=== PATIENT | male | born 1995 | race Caucasian/White ===

== ENCOUNTER → 2017-10-14 | Outpatient (CLI) | payer BC ==
--- NOTE | 2017-10-14 13:17 | US ---
EXAMINATION TYPE: US abdomen complete DATE OF EXAM: 10/14/2017 COMPARISON: NONE CLINICAL HISTORY: R74.8 Abnormal Levels of other serum enzymes. EXAM MEASUREMENTS: Liver Length: 13.4 cm Gallbladder Wall: 0.3 cm CBD: 0.4 cm Spleen: 13.2 cm Right Kidney: 12.1 x 4.5 x 6.3 cm Left Kidney: 12.3 x 5.8 x 5.7 cm Pancreas: not visualized due to midline bowel gas Liver: difficult to penetrate, fatty sparing noted around shreyas hepatis. Gallbladder: No stones seen Evidence for sonographic Block's sign: No CBD: wnl Spleen: wnl Right Kidney: No hydronephrosis or masses seen Left Kidney: No hydronephrosis or masses seen Upper IVC: wnl Abd Aorta: wnl IMPRESSION: 1. Examination is limitation due to bowel gas. 2. Mild Fatty infiltration of liver.
== END | disposition home or self-care (01) ==
LOC: RADUSWWP 07:50
PROVIDERS: ATTEND Family Medicine
DX: K76.0 Fatty (change of) liver, not elsewhere classified (principal)
CPT/HCPCS: 76700

== ENCOUNTER → 2018-04-22 | Outpatient (CLI) | payer BC ==
[2018-04-22 13:38] LABS: Albumin 4.7 g/dL (3.5-5.0); Bilirubin, Delta 0.2 mg/dL (0.0-0.2); Bilirubin,Unconjugated 0.5 mg/dL (0.0-1.1); Total Bilirubin 0.7 mg/dL (0.2-1.3); Total Protein 7.6 g/dL (6.3-8.2)
== END | disposition home or self-care (01) ==
LOC: LABWHC1 12:35
DX: R74.8 Abnormal levels of other serum enzymes (principal)
CPT/HCPCS: 36415; 80061; 80076

== ENCOUNTER 2018-06-18 00:08 | Emergency (ER) | payer BC ==
[2018-06-18] MEDS ORDERED: SODIUM CHLORIDE 0.9% 500 ML 500 ML IV STA (00:20)
[2018-06-18] MEDS ORDERED: ACETAMINOPHEN TAB 500 MG TAB PO STA (00:22)
[2018-06-18] MEDS ORDERED: IBUPROFEN 600 MG TAB PO STA (00:22)
--- NOTE | 2018-06-18 00:33 | ED ---
SOB HPI - General Chief Complaint: Shortness of Breath Stated Complaint: SOB,FEVER Time Seen by Provider: 06/18/18 00:14 Source: patient Mode of arrival: ambulatory Limitations: no limitations - History of Present Illness Initial Comments: 23-year-old male patient presents to the emergency department today with chief complaint of shortness of breath. Patient states that he started becoming short of breath this morning and has progressively worsened throughout the day. Patient denies any cough or congestion. States that he does have some discomfort to the center of his chest when he takes a deep breath. Patient states he was seen here and evaluated yesterday for vomiting and diarrhea was diagnosed with dehydration. Patient states that he did develop a fever this evening with T-max at 102.6F. Patient rates that he has been having some bilateral calf pain but denies any swelling or areas of redness. States he did take a for strep to [place] yesterday but denies any further travel. He has no history of blood clots or clotting disorders. Denies any nasal congestion, sore throat, rash, abdominal pain, or back pain. Patient denies any recent abdominal pain, nausea, vomiting, diarrhea, constipation, back pain, numbness, tingling, dizziness, weakness, hematuria, dysuria, urinary urgency, urinary frequency, headache, visual changes, or any other complaints. - Related Data Previous Rx's Medication Instructions Recorded Ondansetron Odt [Zofran ODT] 4 mg PO Q8HR PRN #30 tab 06/16/18 Allergies Allergy/AdvReac Type Severity Reaction Status Date / Time cefuroxime axetil Allergy Unknown Verified 06/18/18 00:13 [From Ceftin] Review of Systems ROS Statement: Those systems with pertinent positive or pertinent negative responses have been documented in the HPI. ROS Other: All systems not noted in ROS Statement are negative. Past Medical History Past Medical History: Asthma Additional Past Medical History / Comment(s): "fatty liver disease" History of Any Multi-Drug Resistant Organisms: None Reported Past Surgical History: No Surgical Hx Reported Past Psychological History: No Psychological Hx Reported Smoking Status: Never smoker Past Alcohol Use History: Occasional Past Drug Use History: None Reported General Exam Limitations: no limitations General appearance: alert, in no apparent distress, other (This is a well- developed, well-nourished adult male patient in no acute distress. Vital signs upon presentation are temperature 102.9F, pulse 146, respirations 18, blood pressure 145/74, pulse ox 98% on room air.) Eye exam: Present: normal appearance, PERRL, EOMI. Absent: scleral icterus, conjunctival injection, periorbital swelling ENT exam: Present: normal exam, normal oropharynx, mucous membranes moist Respiratory exam: Present: normal lung sounds bilaterally. Absent: respiratory distress, wheezes, rales, rhonchi, stridor Cardiovascular Exam: Present: normal rhythm, tachycardia, normal heart sounds. Absent: systolic murmur, diastolic murmur, rubs, gallop, clicks GI/Abdominal exam: Present: soft, normal bowel sounds. Absent: distended, tenderness, guarding, rebound, rigid Extremities exam: Present: normal inspection, full ROM, normal capillary refill. Absent: tenderness, pedal edema, joint swelling, calf tenderness Neurological exam: Present: alert, oriented X3, CN II-XII intact Psychiatric exam: Present: normal affect, normal mood Skin exam: Present: warm, dry, intact, normal color. Absent: rash Course Vital Signs 06/18/18 06/18/18 06/18/18 00:09 00:39 00:45 Temperature 102.9 F H Pulse Rate 146 H 138 H 142 H Respiratory 18 40 H 25 H Rate Blood Pressure 145/74 128/76 O2 Sat by Pulse 98 97 97 Oximetry 06/18/18 06/18/18 06/18/18 01:00 01:03 01:15 Temperature Pulse Rate 140 H 137 H 128 H Respiratory 32 H 22 41 H Rate Blood Pressure 128/76 116/66 116/66 O2 Sat by Pulse 97 98 96 Oximetry 06/18/18 06/18/18 06/18/18 01:30 01:43 02:05 Temperature 100.1 F H 100.6 F H Pulse Rate 109 H Respiratory Rate Blood Pressure O2 Sat by Pulse Oximetry 06/18/18 06/18/18 06/18/18 02:15 02:20 03:58 Temperature 98.1 F 97.6 F Pulse Rate 109 H 114 H 97 Respiratory 20 18 Rate Blood Pressure 116/69 115/62 O2 Sat by Pulse 98 98 Oximetry Medical Decision Making - Medical Decision Making 23-year-old male patient presented to the emergency department today for evaluation of shortness of breath. Upon arrival patient was febrile with 102.6 F, tachycardic at 146. Lungs are clear to auscultation. Patient did have bronchospastic type reaction to taking deep breaths. Labs reviewed and were unremarkable. D-dimer was negative. CT of the chest, CT abdomen and pelvis with contrast was obtained and showed no acute processes. Upon reevaluation patient was feeling much better. Does feel comfortable being discharged home. Did discuss his symptoms could be related to a virus. Is instructed follow up with his primary care physician for recheck in 1-2 days. Return parameters were discussed in detail. He verbalizes understanding and agrees with this plan. - Lab Data Result diagrams: 06/18/18 00:35 06/18/18 00:35 Lab Results 06/18/18 06/18/18 06/18/18 Range/Units 00:35 00:35 00:35 WBC 5.1 (3.8-10.6) k/uL RBC 4.81 (4.30-5.90) m/uL Hgb 14.2 (13.0-17.5) gm/dL Hct 41.6 (39.0-53.0) % MCV 86.4 (80.0-100.0) fL MCH 29.4 (25.0-35.0) pg MCHC 34.1 (31.0-37.0) g/dL RDW 12.7 (11.5-15.5) % Plt Count 165 (150-450) k/uL Neutrophils % 81 % Lymphocytes % 12 % Monocytes % 4 % Eosinophils % 1 % Basophils % 0 % Neutrophils # 4.1 (1.3-7.7) k/uL Lymphocytes # 0.6 L (1.0-4.8) k/uL Monocytes # 0.2 (0-1.0) k/uL Eosinophils # 0.1 (0-0.7) k/uL Basophils # 0.0 (0-0.2) k/uL D-Dimer (<0.60) mg/L FEU Sodium 137 (137-145) mmol/L Potassium 3.6 (3.5-5.1) mmol/L Chloride 105 (98-107) mmol/L Carbon Dioxide 23 (22-30) mmol/L Anion Gap 9 mmol/L BUN 13 (9-20) mg/dL Creatinine 0.80 (0.66-1.25) mg/dL Est GFR (CKD-EPI)AfAm >90 (>60 ml/min/1.73 sqM) Est GFR (CKD-EPI)NonAf >90 (>60 ml/min/1.73 sqM) Glucose 116 H (74-99) mg/dL Lactic Ac Sepsis Rflx Plasma Lactic Acid Osman (0.7-2.0) mmol/L Calcium 8.9 (8.4-10.2) mg/dL Total Bilirubin 0.9 (0.2-1.3) mg/dL AST 80 H (17-59) U/L ALT 141 H (21-72) U/L Alkaline Phosphatase 67 (38-126) U/L Total Creatine Kinase 93 (55-170) U/L CK-MB (CK-2) 0.3 (0.0-2.4) ng/mL CK-MB (CK-2) Rel Index 0.3 Troponin I <0.012 (0.000-0.034) ng/mL Total Protein 6.7 (6.3-8.2) g/dL Albumin 4.1 (3.5-5.0) g/dL Influenza Type A RNA (Not Detectd) Influenza Type B (PCR) (Not Detectd) 06/18/18 06/18/18 06/18/18 Range/Units 00:35 00:35 00:45 WBC (3.8-10.6) k/uL RBC (4.30-5.90) m/uL Hgb (13.0-17.5) gm/dL Hct (39.0-53.0) % MCV (80.0-100.0) fL MCH (25.0-35.0) pg MCHC (31.0-37.0) g/dL RDW (11.5-15.5) % Plt Count (150-450) k/uL Neutrophils % % Lymphocytes % % Monocytes % % Eosinophils % % Basophils % % Neutrophils # (1.3-7.7) k/uL Lymphocytes # (1.0-4.8) k/uL Monocytes # (0-1.0) k/uL Eosinophils # (0-0.7) k/uL Basophils # (0-0.2) k/uL D-Dimer 0.51 (<0.60) mg/L FEU Sodium (137-145) mmol/L Potassium (3.5-5.1) mmol/L Chloride (98-107) mmol/L Carbon Dioxide (22-30) mmol/L Anion Gap mmol/L BUN (9-20) mg/dL Creatinine (0.66-1.25) mg/dL Est GFR (CKD-EPI)AfAm (>60 ml/min/1.73 sqM) Est GFR (CKD-EPI)NonAf (>60 ml/min/1.73 sqM) Glucose (74-99) mg/dL Lactic Ac Sepsis Rflx Plasma Lactic Acid Osman 2.9 H* (0.7-2.0) mmol/L Calcium (8.4-10.2) mg/dL Total Bilirubin (0.2-1.3) mg/dL AST (17-59) U/L ALT (21-72) U/L Alkaline Phosphatase (38-126) U/L Total Creatine Kinase (55-170) U/L CK-MB (CK-2) (0.0-2.4) ng/mL CK-MB (CK-2) Rel Index Troponin I (0.000-0.034) ng/mL Total Protein (6.3-8.2) g/dL Albumin (3.5-5.0) g/dL Influenza Type A RNA Not Detected (Not Detectd) Influenza Type B (PCR) Not Detected (Not Detectd) 06/18/18 Range/Units 01:32 WBC (3.8-10.6) k/uL RBC (4.30-5.90) m/uL Hgb (13.0-17.5) gm/dL Hct (39.0-53.0) % MCV (80.0-100.0) fL MCH (25.0-35.0) pg MCHC (31.0-37.0) g/dL RDW (11.5-15.5) % Plt Count (150-450) k/uL Neutrophils % % Lymphocytes % % Monocytes % % Eosinophils % % Basophils % % Neutrophils # (1.3-7.7) k/uL Lymphocytes # (1.0-4.8) k/uL Monocytes # (0-1.0) k/uL Eosinophils # (0-0.7) k/uL Basophils # (0-0.2) k/uL D-Dimer (<0.60) mg/L FEU Sodium (137-145) mmol/L Potassium (3.5-5.1) mmol/L Chloride (98-107) mmol/L Carbon Dioxide (22-30) mmol/L Anion Gap mmol/L BUN (9-20) mg/dL Creatinine (0.66-1.25) mg/dL Est GFR (CKD-EPI)AfAm (>60 ml/min/1.73 sqM) Est GFR (CKD-EPI)NonAf (>60 ml/min/1.73 sqM) Glucose (74-99) mg/dL Lactic Ac Sepsis Rflx Y Plasma Lactic Acid Osman (0.7-2.0) mmol/L Calcium (8.4-10.2) mg/dL Total Bilirubin (0.2-1.3) mg/dL AST (17-59) U/L ALT (21-72) U/L Alkaline Phosphatase (38-126) U/L Total Creatine Kinase (55-170) U/L CK-MB (CK-2) (0.0-2.4) ng/mL CK-MB (CK-2) Rel Index Troponin I (0.000-0.034) ng/mL Total Protein (6.3-8.2) g/dL Albumin (3.5-5.0) g/dL Influenza Type A RNA (Not Detectd) Influenza Type B (PCR) (Not Detectd) - Radiology Data Radiology results: report reviewed, image reviewed Two-view x-ray of the chest is obtained. Heart mediastinum are normal. Lungs are clear. Diaphragm is normal. Bony thorax is intact. There are chest leads. Impression by Dr. Duong shows normal chest with no change. CT abdomen and pelvis with contrast was obtained. Report was reviewed in its entirety. Impression by Dr. Duong shows fatty infiltration of the liver. Interstitial infiltrates in the lower lobes. Normal appendix. CT chest angiography for PE was obtained. Report was reviewed in its entirety. Impression by Dr. Duong shows no evidence of pulmonary embolism. Fatty infiltration of the liver. Mild interstitial infiltrates in the lower lobes. Mild cardiomegaly. Disposition Clinical Impression: Shortness of breath, Viral syndrome Disposition: HOME SELF-CARE Condition: Good Instructions: Viral Syndrome (ED), Shortness of Breath (ED) Additional Instructions: Follow up with primary care physician for recheck as soon as possible. Take Tylenol and Motrin for fever control. Return immediately for any new, worsening , or concerning symptoms. Is patient prescribed a controlled substance at d/c from ED?: No Referrals: Walter Shah DO [Primary Care Provider] - 1-2 days Time of Disposition: 04:48
[2018-06-18 01:02] LABS: Basophils % (A) 0 %; Eosinophils # (A) 0.1 k/uL (0-0.7); Eosinophils % (A) 1 %; HCT 41.6 % (39.0-53.0); HGB 14.2 gm/dL (13.0-17.5); Lymphocytes # (A) 0.6 k/uL (1.0-4.8); Lymphocytes % (A) 12 %; MCH 29.4 pg (25.0-35.0); MCHC 34.1 g/dL (31.0-37.0); MCV 86.4 fL (80.0-100.0); Mean Platelet Volume 7.1; Monocytes # (A) 0.2 k/uL (0-1.0); Monocytes % (A) 4 %; Neutrophils # (A) 4.1 k/uL (1.3-7.7); Neutrophils % (A) 81 %; Platelet Count 165 k/uL (150-450); RBC 4.81 m/uL (4.30-5.90); RDW 12.7 % (11.5-15.5); WBC 5.1 k/uL (3.8-10.6)
[2018-06-18 01:14] LABS: ALT 141 U/L (21-72); AST 80 U/L (17-59); Albumin 4.1 g/dL (3.5-5.0); Alkaline Phosphatase 67 U/L (38-126); Anion Gap 9 mmol/L; Blood Urea Nitrogen 13 mg/dL (9-20); Calcium 8.9 mg/dL (8.4-10.2); Carbon Dioxide 23 mmol/L (22-30); Chloride 105 mmol/L (98-107); Glucose 116 mg/dL (74-99); Potassium 3.6 mmol/L (3.5-5.1); Sodium 137 mmol/L (137-145); Total Bilirubin 0.9 mg/dL (0.2-1.3); Total Protein 6.7 g/dL (6.3-8.2)
[2018-06-18 01:33] LABS: Creatine Kinase 93 U/L (55-170)
--- NOTE | 2018-06-18 01:33 | XR ---
EXAMINATION TYPE: XR chest 2V DATE OF EXAM: 06/18/2018 COMPARISON: 07/30/2004 HISTORY: Dyspnea TECHNIQUE: Frontal and lateral views of the chest are obtained. FINDINGS: Heart and mediastinum are normal. Lungs are clear. Diaphragm is normal. Bony thorax is int act. There are chest leads. IMPRESSION: Normal chest. No change.
[2018-06-18 01:46] LABS: Creatine Kinase MB 0.3 ng/mL (0.0-2.4); Troponin I <0.012 ng/mL (0.000-0.034)
[2018-06-18] MEDS ORDERED: IPRATROPIUM-ALBUTEROL 3 ML NEB INHALATION STA (01:50)
[2018-06-18] MEDS ORDERED: SODIUM CHLORIDE 0.9% 1,000 ML IV ONE (04:07)
--- NOTE | 2018-06-18 04:16 | CT ---
EXAMINATION TYPE: CT abdomen pelvis w con DATE OF EXAM: 06/18/2018 COMPARISON: None HISTORY: SOB CT DLP: 1283.5 mGycm Automated exposure control for dose reduction was used. TECHNIQUE: Helical acquisition of images was performed from the lung bases through the pelvis. CONTRAST: Performed without Oral Contrast and with IV Contrast, patient injected with 100mL mL of Isovue 370. FINDINGS: There is interstitial infiltrate in both lower lung fajardo. Heart appears slightly enlarged. There is no pleural effusion. There is fatty infiltration of the liver. The bile ducts are not dilated. Gallb ladder appears normal. Spleen appears normal. There is no pancreatic mass. There is no adrenal mass. Kidneys show satisfactory contrast opacification. There is no hydronephrosis. Ureters are not dilated . There is no retroperitoneal adenopathy. Bladder distends smoothly. There is no inguinal hernia. There is no free fluid in the pelvis. The appendix appears normal. There is no mesenteric edema or ad enopathy. There is no evidence of a bowel obstruction. Bowel is not dilated. Terminal ileum appears n ormal. Lumbar spine is intact. I see no bony destructive process. The bony pelvis appears intact. The re is some fatty infiltration of the wall of the right colon consistent with lipomatosis. IMPRESSION: FATTY INFILTRATION OF THE LIVER. INTERSTITIAL INFILTRATES IN THE LOWER LOBES. NORMAL APPENDIX.
--- NOTE | 2018-06-18 04:23 | CT ---
EXAMINATION TYPE: CT chest angio for PE DATE OF EXAM: 06/18/2018 COMPARISON: None HISTORY: SOB CT DLP: 462.9 mGycm Automated exposure control for dose reduction was used. CONTRAST: CT Chest for pulmonary embolism performed with with IV Contrast, patient injected with 100mL mL of Is ovue 370. FINDINGS: There are 3-D post processed images. Heart is slightly enlarged. There is no pleural effusion. There is interstitial infiltrates in the lo wer lung fajardo. Thoracic aorta is intact without evidence of aneurysm or dissection. I see no fillin g defects in the pulmonary arteries. There are no hilar masses. There is no mediastinal adenopathy. T he bony thorax is intact. IMPRESSION: No evidence of pulmonary embolism. Fatty infiltration of the liver. Mild interstitial infiltrates in the lower lobes. Mild cardiomegaly.
[2018-06-18 05:28] VITALS: BP 124/77; PULSE 82; RESP 20
[2018-06-18 05:34] VITALS: TEMP 98.1
== END 2018-06-18 05:33 | disposition home or self-care (01) ==
LOC: EC 00:08
DX: B34.9 Viral infection, unspecified (principal); M79.661 Pain in right lower leg; M79.662 Pain in left lower leg; R00.0 Tachycardia, unspecified; Z88.1 Allergy status to other antibiotic agents
CPT/HCPCS: 99285; 96360; 96361 ×4; 36415; 94640; 93005; 85379; 80053; 82550; 82553; 83605; 84484; 85025; 87502; 71046; 71275; 74177; Q9967

== ENCOUNTER → 2018-10-30 | Outpatient (CLI) | payer BC ==
[2018-10-30 19:47] LABS: Albumin 4.9 g/dL (3.80-4.90); Albumin/Globulin Ratio 2.58 (1.60-3.17); Bilirubin, Conjugated 0.2 mg/dL (0.20-0.40); Bilirubin,Unconjugated 0.5 mg/dL; Globulin 1.9 g/dL (1.6-3.3); Total Bilirubin 0.7 mg/dL (0.2-1.2); Total Protein 6.8 g/dL (6.2-8.2)
== END | disposition home or self-care (01) ==
LOC: LABWHC1 14:04
PROVIDERS: ATTEND Physician Assistant
DX: R74.8 Abnormal levels of other serum enzymes (principal)
CPT/HCPCS: 36415; 80076

== ENCOUNTER → 2019-05-17 | Outpatient (CLI) | payer BC ==
--- NOTE | 2019-05-17 14:35 | XR ---
EXAMINATION TYPE: XR shoulder complete LT DATE OF EXAM: 05/17/2019 COMPARISON: NONE HISTORY: Pain TECHNIQUE: Shoulder examined in 3 views FINDINGS: The humeral head articulates with the glenoid. The acromio-clavicular junction is normal. No acute fractures or dislocations are evident. A follow up study can be performed 7-10 days from acute trauma for continued pain. IMPRESSION: 1. Normal Shoulder
== END | disposition home or self-care (01) ==
LOC: RADXRMAIN 14:05
PROVIDERS: ATTEND Physician Assistant
DX: M25.512 Pain in left shoulder (principal)

== ENCOUNTER → 2019-05-17 | Outpatient (CLI) | payer BC ==
[2019-05-18 03:03] LABS: ALT 177 U/L (10-49); AST 71 U/L (14-35); Albumin/Globulin Ratio 2.53 (1.60-3.17); Alkaline Phosphatase 65 U/L (41-126); Bilirubin, Conjugated <0.20 mg/dL (0.20-0.40); Globulin 1.9 g/dL (1.6-3.3); Total Bilirubin 0.5 mg/dL (0.3-1.2); Total Protein 6.7 g/dL (6.2-8.2)
== END | disposition home or self-care (01) ==
LOC: LABWHC1 14:57
PROVIDERS: ATTEND Nurse Practitioner
DX: K76.0 Fatty (change of) liver, not elsewhere classified (principal)
CPT/HCPCS: 36415; 80076

== ENCOUNTER → 2019-06-17 | Outpatient (CLI) | payer BC ==
--- NOTE | 2019-06-17 07:58 | US ---
EXAMINATION TYPE: US liver DATE OF EXAM: 06/17/2019 COMPARISON: NONE CLINICAL HISTORY: R74.8 Abn levels serum enzymes. elevated labs, no symptoms EXAM MEASUREMENTS: Liver Length: 19.8 cm Gallbladder Wall: 0.2 cm CBD: 0.5 cm Right Kidney: 11.4 x 5.5 x 5.4 cm Pancreas: not seen due to bowel gas Liver: heterogeneous, slightly enlarged, difficult to penetrate, probable focal fatty sparing Gallbladder: wnl Evidence for sonographic Block's sign: no CBD: wnl Right Kidney: wnl IMPRESSION: Hepatomegaly with underlying fatty hepatic infiltration and areas of focal fatty sparing.
== END | disposition home or self-care (01) ==
LOC: RADUSWWP 07:15
PROVIDERS: ATTEND Nurse Practitioner
DX: K76.0 Fatty (change of) liver, not elsewhere classified (principal); R16.0 Hepatomegaly, not elsewhere classified
CPT/HCPCS: 76705

== ENCOUNTER 2020-11-13 01:01 | Emergency (ER) | payer BC ==
[2020-11-13 01:37] VITALS: RESP 18
--- NOTE | 2020-11-13 01:39 | ED ---
URI HPI - General Chief Complaint: Upper Respiratory Infection Stated Complaint: KIMBERLEY Time Seen by Provider: 11/13/20 01:18 Source: patient Mode of arrival: ambulatory Limitations: no limitations - History of Present Illness Initial Comments: This patient is 25-year-old man who presents to be evaluated for a constellation of symptoms that he believes may have been brought on by covid infection. Patient has been having fever and chills, a little bit of cough, and he was feeling like his breathing was harder than usual about 6 hours prior to evaluation. The patient states that his symptoms have improved somewhat from that time. He is not feeling short of breath currently. Patient's was diagnosed with Covid 19 on Friday. MD Complaint: fever Onset/Timin -: days(s) Consistency: intermittent Improves With: nothing Context: sick contacts Associated Symptoms: fever, myalgias, headache, cough - Related Data Previous Rx's Medication Instructions Recorded Ondansetron Odt [Zofran ODT] 4 mg PO Q8HR PRN #30 tab 06/16/18 Allergies Allergy/AdvReac Type Severity Reaction Status Date / Time cefuroxime axetil Allergy Unknown Verified 11/13/20 01:06 [From Ceftin] Review of Systems ROS Statement: Those systems with pertinent positive or pertinent negative responses have been documented in the HPI. ROS Other: All systems not noted in ROS Statement are negative. Constitutional: Reports: fever, chills Respiratory: Reports: as per HPI, cough, dyspnea Cardiovascular: Reports: as per HPI, palpitations. Denies: chest pain, orthopnea Gastrointestinal: Denies: abdominal pain, vomiting, diarrhea Musculoskeletal: Denies: back pain Skin: Denies: rash Neurological: Reports: headache. Denies: weakness, numbness Past Medical History Past Medical History: Asthma Additional Past Medical History / Comment(s): "fatty liver disease" History of Any Multi-Drug Resistant Organisms: None Reported Past Surgical History: No Surgical Hx Reported Past Psychological History: No Psychological Hx Reported Smoking Status: Never smoker Past Alcohol Use History: Occasional Past Drug Use History: None Reported General Exam Limitations: no limitations General appearance: alert, in no apparent distress Head exam: Present: atraumatic, normocephalic Eye exam: Present: normal appearance. Absent: scleral icterus, conjunctival injection ENT exam: Present: normal oropharynx Neck exam: Present: normal inspection Respiratory exam: Present: normal lung sounds bilaterally. Absent: respiratory distress, wheezes, rales, rhonchi, stridor Cardiovascular Exam: Present: regular rate, normal rhythm, normal heart sounds. Absent: systolic murmur, diastolic murmur, rubs, gallop GI/Abdominal exam: Present: soft. Absent: distended, tenderness, guarding, rebound, rigid Extremities exam: Present: normal inspection, normal capillary refill. Absent: pedal edema, calf tenderness Back exam: Present: normal inspection. Absent: CVA tenderness (R), CVA t enderness (L) Neurological exam: Present: alert Skin exam: Present: warm, dry, intact, normal color. Absent: rash Course Vital Signs 11/13/20 11/13/20 01:03 01:35 Temperature 98.2 F Pulse Rate 101 H Respiratory 20 18 Rate Blood Pressure 127/76 O2 Sat by Pulse 97 Oximetry Medical Decision Making - Lab Data Lab Results 11/13/20 Range/Units 01:10 Coronavirus (PCR) Detected A (Not Detectd) Disposition Clinical Impression: COVID-19 Disposition: HOME SELF-CARE Condition: Good Instructions (If sedation given, give patient instructions): Coronavirus Disease 2019 (COVID-19) Is patient prescribed a controlled substance at d/c from ED?: No Referrals: Franco Thornton MD [Primary Care Provider] - 1-2 days
[2020-11-13] MEDS ORDERED: SODIUM CHLORIDE 0.9% 50 ML IVPB ONE (02:30)
[2020-11-13] MEDS ORDERED: BAMLANIVIMAB (EUA) 700 MG, ETESEVIMAB (EUA) 1,400 MG in SODIUM CHLORIDE 0.9% 50 ML IVPB ONE (02:30)
[2020-11-13 04:03] VITALS: BP 143/86; PULSE 75; TEMP 97.9
== END 2020-11-13 04:03 | disposition home or self-care (01) ==
LOC: EC 01:01
DX: U07.1 COVID-19 (principal); J45.909 Unspecified asthma, uncomplicated
CPT/HCPCS: 87635; 99285; 96365; Q0245

== ENCOUNTER → 2020-12-04 | Outpatient (CLI) | payer BC ==
--- NOTE | 2020-12-04 11:12 | P.STRESS ---
- Stress Test Note Stress Test Results/Findings: Exam Performed: stress echo exercise Exam Date: 12/04/20 Reason for Exam: dyspnea on exertion Height: 5 ft 9 in Weight: 240 kg Protocol: nya Stage: 3 Duration of Exercise: 8 min 53 sec Resting Heart Rate: 87 Resting Blood Pressure: 145/84 Maximum Achieved Heart Rate: 179 Maximum Achieved Blood Pressure: 186/62 85% PMHR: 166 100% PMHR: 195 METS: Technologist Comment: Stress Test Results/Findings: Patient underwent exercise stress echo with a Nya protocol treadmill stress test. Patient exercised into Stage 3 for a total of 8 minutes 53 seconds. Patient's maximum heart rate was 179 which represented 92 % age-predicted maximum heart rate. Stress EKG portion: At baseline patient's EKG showed normal sinus rhythm, normal axis, no significant ST or T wave abnormalities. At peak exercise, EKG showed post significant change from baseline. Stress echo portion: 2-D echocardiogram was performed in the parasternal long, personal short, apical 2 and apical four-chamber views at rest, peak exercise and in recovery. At baseline, echocardiogram showed left ventricular ejection fraction 60 % without wall motion abnormalities. With peak exercise, echocardiogram shows improvement in left ventricular ejection fraction, increase contractility, decrease in left ventricular dimension without wall motion abnormalities consistent with a normal response to exercise. Conclusions: 1. Normal EKG and echo response to exercise without evidence of inducible ischemia. 2. Good exercise capacity.
== END | disposition home or self-care (01) ==
LOC: RADNMMAIN 09:53
PROVIDERS: ATTEND Family Medicine
DX: R06.00 Dyspnea, unspecified (principal)
CPT/HCPCS: 93351

== ENCOUNTER → 2021-08-03 | Outpatient (CLI) | payer OTHER ==
--- NOTE | 2021-08-03 08:42 | US ---
EXAMINATION TYPE: US abdomen complete DATE OF EXAM: 08/03/2021 COMPARISON: NONE CLINICAL HISTORY: R10.9 Unspecified abdominal pain. EXAM MEASUREMENTS: Liver Length: cm Gallbladder Wall: cm CBD: cm Spleen: cm Right Kidney: cm Left Kidney: cm Patient of large body habitus with extensive overlying bowel gas. Technically difficult, somewhat paige ited study. Pancreas: Obscured by bowel gas Liver: Increased attenuation Gallbladder: wnl Evidence for sonographic Block's sign: no CBD: wnl Spleen: wnl Right Kidney: No hydronephrosis or masses seen Left Kidney: No hydronephrosis or masses seen Upper IVC: wnl Abd Aorta: Partially obscured by overlying bowel gas, portions visualized wnl The intrahepatic portion of the IVC and proximal abdominal aorta are within normal limits. There is no evidence of cholelithiasis. Common bile duct is unremarkable. The visualized portions of the rubio creas are homogenous. The spleen is unremarkable. Kidneys are symmetric and free of hydronephrosis. No renal lesions are seen. IMPRESSION: There is evidence of hepatic steatosis.
== END | disposition home or self-care (01) ==
LOC: RADUSWWP 07:56
PROVIDERS: ATTEND Family Medicine
DX: K76.0 Fatty (change of) liver, not elsewhere classified (principal)
CPT/HCPCS: 76700

== ENCOUNTER → 2022-07-16 | Outpatient (CLI) | payer OTHER ==
[2022-07-16 14:51] LABS: ALT 75 U/L (10-49); AST 38 U/L (14-35); Albumin 4.5 g/dL (3.8-4.9); Albumin/Globulin Ratio 1.86 (1.60-3.17); Alkaline Phosphatase 72 U/L (41-126); Bilirubin, Conjugated <0.20 mg/dL (0.20-0.40); C Reactive Protein <0.30 mg/dL (0.00-0.80); GGT 43 U/L (0-73); Globulin 2.4 g/dL (1.6-3.3); Total Protein 6.9 g/dL (6.2-8.2)
== END | disposition home or self-care (01) ==
LOC: LABWHC1 07-06 10:40
PROVIDERS: ATTEND Family Medicine
DX: Z13.220 Encounter for screening for lipoid disorders (principal); R74.01 Elevation of levels of liver transaminase levels
CPT/HCPCS: 36415; 80076; 82172; 82977; 83090; 83704; 85384; 86140

== ENCOUNTER → 2022-08-27 | Outpatient (CLI) | payer OTHER ==
--- NOTE | 2022-08-27 12:21 | US ---
EXAMINATION TYPE: US scrotum with doppler. DATE OF EXAM: 08/27/2022 COMPARISON: NONE CLINICAL HISTORY: 27-year-old male N43.40 SPERMATOCELE OF EPIDIDYMIS, UNSPECIFIED. Left tender lumps (2) x 1 week TECHNIQUE: Grayscale and color Doppler Duplex imaging performed of the scrotum. FINDINGS: EXAM MEASUREMENTS: TESTICLES: Right Testicle: 4.7 x 2.3 x 3.0 cm Left Testicle: 4.4 x 2.5 x 3.0 cm Doppler performed to assess for testicular vascularity; good bilateral color flow and waveforms are s een. There is no evidence of testicular torsion. EPIDIDYMIS HEAD: Right Epididymis: 0.75 cm. A couple epididymal head cysts are present measuring up to 7 mm. Left Epididymis: 0.86 cm. Larger epididymal head cysts are present on the left, measuring up to 1.0 cm each. These seem to correspond to the site of patient's palpable abnormality. Presence of hydroceles: No Presence of varicoceles: No Automatic Print Developer notes: Area of palpable masses: Anechoic masses left epididymal head, compatible with cysts. 1. 1.0 x 0.90 x 0.99cm 2. 0.80 x 0.99 x 0.83cm IMPRESSION: 1. No sonographic evidence for testicular torsion or mass. 2. Epididymal head cysts (versus small spermatoceles) on both sides, larger on the left measuring up to 1.0 cm. On the left, these seem to correspond to the patient's palpable area.
== END | disposition home or self-care (01) ==
LOC: RADUSWWP 07:01
PROVIDERS: ATTEND Family Medicine
DX: N43.41 Spermatocele of epididymis, single (principal); N50.3 Cyst of epididymis
CPT/HCPCS: 76870; 93975

== ENCOUNTER 2023-04-07 22:58 | Emergency (ER) | payer OTHER ==
[2023-04-07 23:01] VITALS: BP 126/66; PULSE 85; RESP 18; TEMP 98.6
[2023-04-07] MEDS ORDERED: CLINDAMYCIN 150 MG CAP PO STA (23:16)
--- NOTE | 2023-04-07 23:33 | ED ---
General Adult HPI - General Chief complaint: Skin/Abscess/Foreign Body Stated complaint: Possible leg infection Time Seen by Provider: 04/07/23 23:03 Source: patient Mode of arrival: ambulatory Limitations: no limitations - History of Present Illness Initial comments: Patient is a 28-year-old male who presents to the emergency department for possible leg infection. Patient was bit by a mosquito last week he noticed increased redness and pain around the bite over the past few days. Denies fever, chills, nausea, vomiting. - Related Data Previous Rx's Medication Instructions Recorded Ondansetron Odt [Zofran ODT] 4 mg PO Q8HR PRN #30 tab 06/16/18 Clindamycin [Cleocin] 450 mg PO Q8H #45 capsule 04/07/23 Allergies Allergy/AdvReac Type Severity Reaction Status Date / Time cefuroxime axetil Allergy Unknown Verified 04/07/23 23:01 [From Ceftin] Review of Systems ROS Statement: Those systems with pertinent positive or pertinent negative responses have been documented in the HPI. ROS Other: All systems not noted in ROS Statement are negative. Past Medical History Past Medical History: Asthma Additional Past Medical History / Comment(s): "fatty liver disease" History of Any Multi-Drug Resistant Organisms: None Reported Past Surgical History: No Surgical Hx Reported Past Psychological History: ADD/ADHD, Depression Smoking Status: Never smoker Past Alcohol Use History: Occasional Past Drug Use History: Marijuana General Exam Limitations: no limitations General appearance: alert Head exam: Present: atraumatic, normocephalic, normal inspection Eye exam: Present: normal appearance, PERRL, EOMI. Absent: scleral icterus, conjunctival injection, periorbital swelling Respiratory exam: Present: normal lung sounds bilaterally. Absent: respiratory distress, wheezes, rales, rhonchi, stridor Cardiovascular Exam: Present: regular rate, normal rhythm, normal heart sounds. Absent: systolic murmur, diastolic murmur, rubs, gallop, clicks Extremities exam: Present: other (Bug bite with surrounding erythema, warmth, tenderness. No drainage. No fluctuance or drainable abscess) Neurological exam: Present: alert Psychiatric exam: Present: normal affect, normal mood Skin exam: Present: warm, dry, intact, normal color. Absent: rash Course Vital Signs 04/07/23 22:59 Temperature 98.6 F Pulse Rate 85 Respiratory 18 Rate Blood Pressure 126/66 O2 Sat by Pulse 97 Oximetry Medical Decision Making - Medical Decision Making Was pt. sent in by a medical professional or institution (SANGITA Bell, CLINICAL BIOCHEMIST, urgent care, hospital, or usp...) When possible be specific @ -No Did you speak to anyone other than the patient for history (EMS, parent, family, police, friend...)? What history was obtained from this source @ -No Did you review nursing and triage notes (agree or disagree)? Why? @ -I reviewed and agree with nursing and triage notes Were old charts reviewed (outside hosp., previous admission, EMS record, old EKG, old radiological studies, urgent care reports/EKG's, usp records)? Report findings @ -No old charts were reviewed Differential Diagnosis (chest pain, altered mental status, abdominal pain women, abdominal pain men, vaginal bleeding, weakness, fever, dyspnea, syncope, headache, dizziness, GI bleed, back pain, seizure, CVA, palpatations, mental health)? @ -Cellulitis, wound infection, abscess, ALLERGIC reaction EKG interpreted by me (3pts min.). @ -As above X-rays interpreted by me (1pt min.). @ -None done CT interpreted by me (1pt min.). @ -None done U/S interpreted by me (1pt. min.). @ -None done What testing was considered but not performed or refused? (CT, X-rays, U/S, labs)? Why? @ -None What meds were considered but not given or refused? Why? @ -None Did you discuss the management of the patient with other professionals (professionals i.e. SANGITA Bell, CLINICAL BIOCHEMIST, lab, RT, psych nurse, social work program coordinator, double end tenon operator, teacher, trust officer, window caser)? Give summary @ -No Was smoking cessation discussed for >3mins.? @ -No Was critical care preformed (if so, how long)? @ -[No] Were there social determinants of health that impacted care today? How? (Homelessness, low income, unemployed, alcoholism, drug addiction, transportation, low edu. Level, literacy, decrease access to med. care, halfway, rehab)? @ -[No] Was there de-escalation of care discussed even if they declined (Discuss DNR or withdrawal of care, Hospice)? DNR status @ -[No] What co-morbidities impacted this encounter? (DM, HTN, Smoking, COPD, CAD, Cancer, CVA, ARF, Chemo, Hep., AIDS, mental health diagnosis, sleep apnea, morbid obesity)? @ -[None] Was patient admitted / discharged? Hospital course, mention meds given and route, prescriptions, significant lab abnormalities, going to OR and other pertinent info. @ -Discharged with antibiotics for infected bug bite. Discussed return parameters Undiagnosed new problem with uncertain prognosis? @ -[No] Drug Therapy requiring intensive monitoring for toxicity (Heparin, Nitro, Insulin, Cardizem)? @ -[No] Were any procedures done? @ -[No] Diagnosis/symptom? @ -wound infection Acute, or Chronic, or Acute on Chronic? @ -acute Uncomplicated (without systemic symptoms) or Complicated (systemic symptoms)? @ uncomplicated Side effects of treatment? @ -[No] Exacerbation, Progression, or Severe Exacerbation? @ -[No] Poses a threat to life or bodily function? How? (Chest pain, [place], SD, pneumonia, PE, COPD, DKA, ARF, appy, cholecystitis, CVA, Diverticulitis, Homicidal, Suicidal, threat to staff... and all critical care pts) @ -No Dr. Chin is my attending Disposition Clinical Impression: Wound infection Disposition: HOME SELF-CARE Condition: Good Instructions (If sedation given, give patient instructions): Wound Infection (ED) Additional Instructions: Take medication as directed. This antibiotic may cause diarrhea. Please follow- up with your primary care provider in 1-2 days. Return to the emergency department if you experience new, concerning, or worsening symptoms. Prescriptions: Clindamycin [Cleocin] 450 mg PO Q8H #45 capsule Is patient prescribed a controlled substance at d/c from ED?: No Referrals: Franco Thornton MD [Primary Care Provider] - 1-2 days
== END 2023-04-07 23:44 | disposition home or self-care (01) ==
LOC: EC 22:58
DX: T81.49XA Infection following a procedure, other surgical site, initial encounter (principal); K76.0 Fatty (change of) liver, not elsewhere classified; J45.909 Unspecified asthma, uncomplicated; F12.90 Cannabis use, unspecified, uncomplicated; Z86.59 Personal history of other mental and behavioral disorders; Z88.1 Allergy status to other antibiotic agents
CPT/HCPCS: 99282